=== PATIENT | female | born 1955 | race Caucasian/White ===

== ENCOUNTER 2016-11-18 10:12 | Emergency (ER) | payer OTHER ==
[~2016-11-18] VITALS: Wt 79.0 kg
[2016-11-18 11:01] LABS: URINE BLOOD (Dip) POC 2+ (NEGATIVE)
[2016-11-18] MEDS ORDERED: CEPH-443 PO (11:19)
[2016-11-18] MEDS ORDERED: PHEN-537 PO (11:20)
[2016-11-18] MEDS ORDERED: PHENAZOPYRIDINE 100 MG TAB PO ONE (11:30)
[2016-11-18] MEDS ORDERED: IBUPROFEN 600 MG TAB PO ONE (11:30)
--- NOTE | 2016-11-18 11:55 | ERD ---
ER Documentation Chief Complaint Date/Time DATE: 11/18/16 TIME: 11:53 Chief Complaint DYSURIA X 1 WEEK HPI This is a 61-year-old female presents to the ER with urinary frequency and dysuria since night. Yesterday patient tried taking cranberry juice and took to amoxicillin. Patient stated that amoxicillin helped her temporarily however this morning she woke up with severe burning with urination. Patient does admit to some lower back patient denies any nausea or vomiting. She also admits to a generalized headache. ROS 12 point review of systems was done, all negative except per HPI. Medications Home Meds Active Scripts Phenazopyridine Hcl* (Pyridium*) 100 Mg Tab, 100 MG PO TID Y for URINARY PAIN, # 9 TAB Prov:CARMENCITA FLORES C 11/18/16 Cephalexin* (Keflex*) 500 Mg Capsule, 500 MG PO BID for 7 Days, CAP Prov:MARK,CARMENCITA C 11/18/16 Allergies Allergies: Coded Allergies: No Known Allergy (Unverified , 11/18/16) PMhx/Soc History of Surgery: No Anesthesia Reaction: No Hx Neurological Disorder: No Hx Respiratory Disorders: No Hx Cardiac Disorders: No Hx Psychiatric Problems: No Hx Miscellaneous Medical Probl: No Hx Alcohol Use: No Hx Substance Use: No Hx Tobacco Use: No Smoking Status: Never smoker Physical Exam Vitals Vital Signs Date Time Temp Pulse Resp B/P Pulse Ox O2 Delivery O2 Flow Rate FiO2 11/18/16 10:17 98.0 71 18 136/80 99 Physical Exam GENERAL: The patient is well developed and appropriate for usual state of health , in no apparent distress. HEENT: Atraumatic. CHEST: Clear to auscultation bilaterally. There are no rales, wheezes or rhonchi. HEART: Regular rate and rhythm. No murmurs, clicks, rubs or gallops. ABDOMEN: Soft, nontender and nondistended. Good bowel sounds. No rebound or guarding. No gross peritonitis. No gross organomegaly or masses. No Lucas sign or McBurney point tenderness. Positive suprapubic tenderness BACK: No midline or flank tenderness. No CVA tenderness NEURO: Alert and oriented. Results 24 hrs Laboratory Tests Test 11/18/16 10:59 Bedside Urine pH (LAB) 6.0 Bedside Urine Protein (LAB) Negative Bedside Urine Glucose (UA) Negative Bedside Urine Ketones (LAB) Negative Bedside Urine Blood 2+ Bedside Urine Nitrite (LAB) Negative Bedside Urine Leukocyte Esterase (L 1+ Current Medications Medications (Trade) Dose Ordered Sig/Katherin Route PRN Reason Start Time Stop Time Status Last Admin Dose Admin Phenazopyridine HCl (Pyridium) 200 mg ONCE ONCE PO 11/18/16 11:30 11/18/16 11:31 DC 11/18/16 11:26 Ibuprofen (Motrin) 600 mg ONCE ONCE PO 11/18/16 11:30 11/18/16 11:31 DC 11/18/16 11:26 Procedures/MDM This is a 61-year-old female that presents to the ER with urinary frequency and dysuria. Patient did have a urinary tract infection on urinalysis. Suspicion for pyelonephritis is low. Patient is afebrile and well-appearing. Suspicion for kidney stones is low. Suspicion for intra-abdominal abscess, ovarian torsion, pelvic inflammatory disease is low. Patient will be sent home with Keflex. She is to follow-up with her primary care doctor within 1-2 days or return to ER sooner if symptoms worsen. My medical decision making was shared with the patient she understands and agrees with plan. Departure Diagnosis: Primary Impression: UTI (urinary tract infection) Condition: Stable Patient Instructions: Understanding Urinary Tract Infections (UTIs) Additional Instructions: Llame al doctor MAANA y staci deidre SKYLA PARA DENTRO DE 1-2 ELIAS.Dgale a la secretaria que nosotros le instruimos hacer esta skyla.Avise o llame si cisneros condicin se empeora antes de la skyla. Regresa aqui si peor o no mejor. CARMENCITA FLORES Nov 18, 2016 11:55
== END 2016-11-18 11:35 | disposition home or self-care (01) ==
LOC: FTE 10:12
DX: N39.0 Urinary tract infection, site not specified (principal)
CPT/HCPCS: 81003; Z7502; Z7610; 99283

== ENCOUNTER 2018-12-29 16:11 | Emergency (ER) | payer OTHER ==
[~2018-12-29] VITALS: Ht 160 cm; Wt 84.3 kg
[~2018-12-29 16:11] MED LIST: CEPH-443 PO; PHEN-537 PO
[2018-12-29 16:14] VITALS: BP 158/94; PULSE 79; RESP 18; Ht 160 cm; Wt 84.3 kg
--- NOTE | 2018-12-29 17:07 | ERD ---
ER Documentation Chief Complaint Chief Complaint dysuria x 2 weeks, lower back pain x 1 week HPI 63-year-old female, presents to the emergency department, complaining of dysuria for 2 weeks associated with pelvic bloating and lower back pain. She denies fever, no diarrhea or constipation, no nausea or vomiting. ROS All systems reviewed and are negative except as per history of present illness. Medications Home Meds Active Scripts Acetaminophen* (Tylenol*) 325 Mg Tablet, 2 TAB PO Q6 PRN for PAIN AND OR ELEVATED TEMP, #20 TAB Prov:ANI ANGEL MD 12/29/18 Ibuprofen* (Motrin*) 400 Mg Tab, 400 MG PO Q6H PRN for PAIN AND OR ELEVATED TEMP, #20 TAB Prov:ANI ANGEL MD 12/29/18 Hydrocodone/Acetaminophen (Sims 5-325 Tablet) 1 Each Tablet, 1 TAB PO QHS PRN for PAIN, #7 TAB Prov:ANI ANEGL MD 12/29/18 Phenazopyridine Hcl* (Pyridium*) 100 Mg Tab, 100 MG PO TID PRN for URINARY PAIN, #9 TAB Prov:CARMENCITA FLORES 11/18/16 Cephalexin* (Keflex*) 500 Mg Capsule, 500 MG PO BID for 7 Days, CAP Prov:CARMENCITA FLORES C 11/18/16 Allergies Allergies: Coded Allergies: No Known Allergy (Unverified , 11/18/16) PMhx/Soc Medical and Surgical Hx: pt denies Medical Hx History of Surgery: No Anesthesia Reaction: No Hx Neurological Disorder: No Hx Respiratory Disorders: No Hx Cardiac Disorders: No Hx Psychiatric Problems: No Hx Miscellaneous Medical Probl: No Hx Alcohol Use: No Hx Substance Use: No Hx Tobacco Use: No Smoking Status: Never smoker FmHx Family History: No diabetes, No coronary disease Physical Exam Vitals Vital Signs Date Temp Pulse Resp B/P (MAP) Pulse Ox O2 O2 Flow FiO2 Time Delivery Rate 12/29/18 98.1 79 18 158/94 97 16:14 (115) Physical Exam Const: No acute distress Head: Atraumatic Eyes: Normal Conjunctiva ENT: Normal External Ears, Nose and Mouth. Neck: Full range of motion. No meningismus. Resp: Clear to auscultation bilaterally Cardio: Regular rate and rhythm, no murmurs Abd: Soft, non tender, non distended. Normal bowel sounds Skin: No petechiae or rashes Back: No midline or flank tenderness Ext: No cyanosis, or edema Neur: Awake and alert Psych: Normal Mood and Affect Results 24 hrs Laboratory Tests Test 12/29/18 17:18 12/29/18 17:30 Bedside Urine pH (LAB) 5.5 Bedside Urine Protein (LAB) Negative Bedside Urine Glucose (UA) Negative Bedside Urine Ketones (LAB) Negative Bedside Urine Blood 1+ Bedside Urine Nitrite (LAB) Negative Bedside Urine Leukocyte Esterase (L Negative Urine Color COLORLESS Urine Clarity CLEAR Urine pH 5.0 Urine Specific [place] 1.004 Urine Ketones NEGATIVE mg/dL Urine Nitrite NEGATIVE mg/dL Urine Bilirubin NEGATIVE mg/dL Urine Urobilinogen NEGATIVE mg/dL Urine Leukocyte Esterase NEGATIVE Isai/ul Urine Microscopic RBC 0 /HPF Urine Microscopic WBC 0 /HPF Urine Hemoglobin 1+ mg/dL Urine Glucose NEGATIVE mg/dL Urine Total Protein NEGATIVE mg/dl Current Medications Medications Dose Sig/Katherin Start Time Status Last (Trade) Ordered Route PRN Stop Time Admin Dose Reason Admin 650 mg ONCE ONCE 12/29/18 DC 12/29/18 Acetaminophen PO 18:30 12/29/18 19:17 (Tylenol 18:31 Tab) Ibuprofen 400 mg ONCE ONCE 12/29/18 DC 12/29/18 (Motrin) PO 18:30 12/29/18 19:17 18:31 Patient: SAMANTHA VAZQUEZ : 1955 Age: 63 Sex: F MR #: [id number] DOS: 12/29/18 1711 Ordering MD: ANI ANGEL MD Location: [facility] Room/Bed: PROCEDURE: US Pelvis. CLINICAL INDICATION: pelvic pain TECHNIQUE: Multiple sonographic images of the pelvis were obtained utilizing transabdominal technique. The images were reviewed on a PACS workstation. COMPARISON: None. FINDINGS: The patient is status post hysterectomy. The ovaries were not visualized. There is no evidence for free fluid. RPTAT: AA IMPRESSION: Status post hysterectomy. Ovaries not visualized. No free fluid. Procedures/MDM Differential diagnosis include but not limited to: UTI, colitis, gastroe nteritis, kidney stones, irritable bowel syndrome, inflammatory bowel syndrome, malabsorption syndrome, cholelithiasis, food intolerance, medication side effect, pancreatitis, diverticulitis, bowel obstruction. Low suspicion for acute abdomen Physical examination and clinical presentation consistent most likely with lower back pain and dysuria but no evidence of urinary tract infection. During the ED course the patient remained stable, no new complaints. Results and clinical impression discussed with patient who agrees with management. The patient is stable to be treated outpatient and will be discharged home, some side effects of prescribed medications (headache, rash, nausea, vomiting, diarrhea, drowsiness, habituation, bleeding, hypertension, interactions with other medications) were reviewed. The patient was instructed to follow up with the primary care provider in the next 48h. If symptoms persist, worsen or new symptoms develop, then patient should return to the ED immediately. Instructions explained and given directly by me to the patient with acknowledgment and demonstrated understanding. Disclaimer: Inadvertent spelling and grammatical errors are likely due to EHR/dictation software use and do not reflect on the overall quality of patient care. Also, please note that the electronic time recorded on this note does not necessarily reflect the actual time of the patient encounter. Departure Diagnosis: Primary Impression: Dysuria Additional Impression: Lower back pain Condition: Stable Patient Instructions: Dysuria Additional Instructions: Muchas jenny por [facility] para cisneros servicio. Esperamos que en cisneros visita a la maritza de emergencia cisneros problema medico haya sido solucionado y que se sienta mucho mejor. Para estar seguros que cisneros mejoria sigue en proceso, le pedimos el favor de hacer deidre garcia de seguimiento medico con cisneros doctor primario en los proximos 2-4 higgins. Lleve con usted estos documentos y las medicinas recetadas. Si rani sintomas empeoran, NO SE ESPERE, por favor regrese a maritza de emergencia INMEDIATAMENTE. En brina que usted no tenga un mdico de atencin primaria: Llame al mdico o clnica comunitaria de referencia que aparece abajo george las horas de consultorio para hacer deidre garcia para que le vean. CLINICAS: [facility] [phone] [id number] [facility] [phone] [address] [facility] [phone] [place] [id number] [phone] [place] [id number] [phone] [facility] [phone] ANI ORNELAS MD December 29, 2018 17:07
[2018-12-29] MEDS ORDERED: IBUPROFEN 200 MG TAB PO ONE (18:30)
[2018-12-29] MEDS ORDERED: ACETAMINOPHEN 325 MG TAB PO ONE (18:30)
[2018-12-29] MEDS ORDERED: ACET325T33 PO (19:28)
[2018-12-29] MEDS ORDERED: HYDR-4011 PO (19:28)
[2018-12-29] MEDS ORDERED: IBUP-1561 PO (19:28)
== END 2018-12-29 19:46 | disposition home or self-care (01) ==
LOC: FTE 16:11
DX: M54.5 Low back pain (principal)
CPT/HCPCS: 76856; 81001; 81003; Z7502; Z7610

== ENCOUNTER 2019-03-29 16:22 | Emergency (ER) | payer OTHER ==
[~2019-03-29] VITALS: Ht 157.5 cm; Wt 78.0 kg
[~2019-03-29 16:22] MED LIST changes: +ACET325T33 PO; +HYDR-4011 PO; +IBUP-1561 PO
[2019-03-29 16:26] VITALS: Ht 157.5 cm; Wt 78.0 kg
[2019-03-29] MEDS ORDERED: KETOROLAC 30 MG INJ IV STA (17:59)
--- NOTE | 2019-03-29 18:17 | ERD ---
ER Documentation Chief Complaint Chief Complaint PELVIC PAIN X 2 MOS INTERMITTENT, HAD VAG US YESTERDAY PAIN WORSEN HPI 63-year-old female otherwise healthy presenting with chronic lower abdominal pain. Patient states for the past 2 months patient has been having pain along the scar it began when she was exercising he felt a popping sensation in that region she has been to [facility] and urology with negative work-up. She did have a pelvic ultrasound yesterday results are pending. Today the pain got worse so she came to the emergency department. No nausea, vomiting, constipation, diarrhea, dysuria, vaginal bleeding or vaginal discharge. Profen 800 mg taken at 1 PM did alleviate the pain somewhat. Pain is worse with movement. ROS All systems reviewed and are negative except as per history of present illness. Medications Home Meds Active Scripts Acetaminophen* (Tylenol*) 325 Mg Tablet, 2 TAB PO Q6 PRN for PAIN AND OR ELEVATED TEMP, #20 TAB Prov:ANI ANGEL MD 12/29/18 Ibuprofen* (Motrin*) 400 Mg Tab, 400 MG PO Q6H PRN for PAIN AND OR ELEVATED TEMP, #20 TAB Prov:ANI ANGEL MD 12/29/18 Hydrocodone/Acetaminophen ([place] 5-325 Tablet) 1 Each Tablet, 1 TAB PO QHS PRN for PAIN, #7 TAB Prov:ANI ANGEL MD 12/29/18 Phenazopyridine Hcl* (Pyridium*) 100 Mg Tab, 100 MG PO TID PRN for URINARY PAIN, #9 TAB Prov:CARMENCITA FLORES 11/18/16 Cephalexin* (Keflex*) 500 Mg Capsule, 500 MG PO BID for 7 Days, CAP Prov:CARMENCITA FLORES 11/18/16 Allergies Allergies: Coded Allergies: No Known Allergy (Unverified , 11/18/16) PMhx/Soc Surgical history section Medical and Surgical Hx: pt denies Medical Hx Anesthesia Reaction: No Hx Neurological Disorder: No Hx Respiratory Disorders: No Hx Cardiac Disorders: No Hx Psychiatric Problems: No Hx Miscellaneous Medical Probl: No Hx Alcohol Use: No Hx Substance Use: No Hx Tobacco Use: No Physical Exam Vitals Vital Signs Date Temp Pulse Resp B/P (MAP) Pulse Ox O2 O2 Flow FiO2 Time Delivery Rate 03/29/19 54 13 149/75 97 Room Air 18:27 (99) 03/29/19 97.8 79 18 164/79 99 16:26 (107) Physical Exam Const: No acute distress Head: Atraumatic Eyes: Normal Conjunctiva ENT: Normal External Ears, Nose and Mouth. Neck: Full range of motion. No meningismus. Resp: Clear to auscultation bilaterally Cardio: Regular rate and rhythm, no murmurs Abd: Soft, mild tenderness in suprapubic region no rebound or guarding non distended. Normal bowel sounds Skin: No petechiae or rashes Back: No midline or flank tenderness Ext: No cyanosis, or edema Neur: Awake and alert Psych: Normal Mood and Affect Result Diagram: 03/29/19181103/29/191811 Results 24 hrs Laboratory Tests Test 03/29/19 18:12 White Blood Count 9.6 10^3/ul Red Blood Count 4.78 10^6/ul Hemoglobin 14.4 g/dl Hematocrit 43.4 % Mean Corpuscular Volume 90.8 fl Mean Corpuscular Hemoglobin 30.1 pg Mean Corpuscular Hemoglobin Concent 33.2 g/dl Red Cell Distribution Width 12.0 % Platelet Count 276 10^3/UL Mean Platelet Volume 10.7 fl Immature Granulocytes % 0.200 % Neutrophils % 53.5 % Lymphocytes % 34.4 % Monocytes % 8.8 % Eosinophils % 2.4 % Basophils % 0.7 % Nucleated Red Blood Cells % 0.0 /100WBC Immature Granulocytes # 0.020 10^3/ul Neutrophils # 5.1 10^3/ul Lymphocytes # 3.3 10^3/ul Monocytes # 0.9 10^3/ul Eosinophils # 0.2 10^3/ul Basophils # 0.1 10^3/ul Nucleated Red Blood Cells # 0.0 10^3/ul Sodium Level 141 mmol/L Potassium Level 4.0 mmol/L Chloride Level 104 mmol/L Carbon Dioxide Level 29 mmol/L Anion Gap 8 Blood Urea Nitrogen 19 mg/dl Creatinine 0.81 mg/dl Est Glomerular Filtrat Rate mL/min > 60 mL/min Glucose Level 96 mg/dl Calcium Level 9.9 mg/dl Total Bilirubin 0.6 mg/dl Direct Bilirubin 0.00 mg/dl Indirect Bilirubin 0.6 mg/dl Aspartate Amino Transf (AST/SGOT) 39 IU/L Alanine Aminotransferase (ALT/SGPT) 43 IU/L Alkaline Phosphatase 66 IU/L Total Protein 7.5 g/dl Albumin 4.6 g/dl Globulin 2.90 g/dl Albumin/Globulin Ratio 1.58 Lipase 128 U/L Current Medications Medications Dose Sig/Katherin Start Time Status Last (Trade) Ordered Route PRN Stop Time Admin Dose Reason Admin Ketorolac 30 mg ONCE STAT 03/29/19 DC 03/29/19 Tromethamine IV 17:59 03/29/19 18:30 (Toradol) 18:03 IV Flush 10 ml STK-MED 03/29/19 DC 03/29/19 (NS 10 ml) ONCE .ROUTE 19:08 03/29/19 19:19 19:09 Sodium 100 ml @ ud STK-MED 03/29/19 DC 03/29/19 Chloride ONCE .ROUTE 19:08 03/29/19 19:19 19:09 Iohexol 150 ml STK-MED 03/29/19 DC 03/29/19 (Omnipaque ONCE .ROUTE 19:08 03/29/19 19:19 300mg/ ml) 19:09 Procedures/MDM Patient presents with abdominal pain, , has flatus , BM afebrile Patient is well appearing. Non acute abdominal exam. Low suspicion for AAA given no palpable mass. Low suspicion for mesenteric ischemia given pain not out of proportion to exam, and no major risk factors .Patient remains PO tolerant. Serial abdominal exam without increase in abdominal pain. Given exam and history, low suspicion for acute abdominal process, such as acute cholecystitis, pancreatitis, perforated viscus, atypical appendicitis or torsion. Extensive conversation about return precautions and need for follow-up. CT abdomen pelvis unremarkable. Labs unremarkable. Will have patient follow-up with her primary care doctor Departure Diagnosis: Primary Impression: Abdominal pain Condition: Stable FABI MARIE MD Mar 29, 2019 18:17
[2019-03-29] MEDS ORDERED: IOHEXOL 300MG/ML 150 ML BTL ONE (19:08)
[2019-03-29] MEDS ORDERED: SOD CHLORIDE 0.9% 100 ML ONE (19:08)
[2019-03-29 20:44] VITALS: BP 138/65; PULSE 58; RESP 18
== END 2019-03-29 20:46 | disposition home or self-care (01) ==
LOC: E/R 16:22
DX: R10.2 Pelvic and perineal pain (principal)
CPT/HCPCS: 36415; 74177; 80053; 81001; 83690; 85025; 96374; J1885; Q9967; Z7502; Z7610